=== PATIENT | male | born 1965 | race Caucasian/White ===

== ENCOUNTER 2016-06-23 13:14 | Emergency (ER) | payer OTHER ==
[~2016-06-23] VITALS: Ht 188 cm; Wt 81.7 kg
[2016-06-23 14:20] LABS: HEMATOCRIT 43.6 % (42.0-52.0); HEMOGLOBIN 15.2 gm/dL (14.0-18.0); MCH 32.4 pg (26.0-34.0); MCHC 34.8 % (28.0-37.0); MCV 92.9 fL (80.0-100.0); PLATELET COUNT 226 thou/uL (150-400); RBC 4.69 mil/uL (4.50-6.00); RDW 14.1 % (10.5-14.5)
[2016-06-23 14:27] LABS: CALCIUM 9.1 mg/dL (8.5-10.1); CREATININE 1.1 mg/dL (0.6-1.3); MANUAL DIFF YES; POTASSIUM 4.2 mmol/L (3.5-5.1)
[2016-06-23] MEDS ORDERED: VENTOLIN HFA 1818 GM INH (16:48)
[2016-06-23] MEDS ORDERED: BACTRIM DS TAB1 EACH PO (16:53)
[2016-06-23] MEDS ORDERED: PREDNISONE 20 M20 MG PO (16:53)
[2016-06-23 17:00] VITALS: BP 126/73
[2016-06-23 18:23] LABS: ABSOLUTE NEUTROPHILS 3.1 thou/uL (1.4-8.2); METAMYELOCYTES 1 %; TOTAL CELL COUNT 100
== END 2016-06-23 17:00 | disposition home or self-care (01) ==
LOC: ER 13:14
PROVIDERS: Physician Assistant
DX: J44.1 Chronic obstructive pulmonary disease with (acute) exacerbation (principal); J20.8 Acute bronchitis due to other specified organisms; B43.2 Subcutaneous pheomycotic abscess and cyst; F10.21 Alcohol dependence, in remission

== ENCOUNTER 2016-09-14 01:43 | Emergency (ER) | payer OTHER ==
[~2016-09-14] VITALS: Ht 188 cm; Wt 70.3 kg
[~2016-09-14 01:43] MED LIST: BACTRIM DS TAB1 EACH PO; PREDNISONE 20 M20 MG PO; VENTOLIN HFA 1818 GM INH
[2016-09-14 03:43] LABS: ABSOLUTE NEUTROPHILS 7.1 thou/uL (1.4-8.2); BASOPHILS 1.3 % (0.0-2.0); EOSINOPHILS 0.6 % (0.0-3.0); HEMATOCRIT 43.5 % (42.0-52.0); HEMOGLOBIN 15.2 gm/dL (14.0-18.0); LYMPHOCYTES 13.5 % (24.0-44.0); MCH 34.5 pg (26.0-34.0); MCV 98.6 fL (80.0-100.0); MONOCYTES 6.7 % (1.0-8.0); PLATELET COUNT 357 thou/uL (150-400); POLYS 77.9 % (36.0-66.0); RBC 4.42 mil/uL (4.50-6.00); RDW 16.6 % (10.5-14.5); WBC 9.1 thou/uL (4.0-11.0)
[2016-09-14 03:47] LABS: MANUAL DIFF NO
[2016-09-14 04:00] LABS: ALBUMIN 3.9 g/dL (3.4-5.0); CALCIUM 8.8 mg/dL (8.5-10.1); CREATININE 0.9 mg/dL (0.7-1.3); POTASSIUM 4.2 mmol/L (3.5-5.1); TOTAL BILIRUBIN 0.5 mg/dL (<0.1-1.0); TOTAL PROTEIN 7.9 g/dL (6.4-8.2)
[2016-09-14] MEDS ORDERED: NORCO 5-325 TA1 EACH PO (04:52)
[2016-09-14] MEDS ORDERED: PRILOSEC 20 MG20 MG PO (04:52)
[2016-09-14] MEDS ORDERED: ZOFRAN ODT8 MG PO (04:52)
[2016-09-14] MEDS ORDERED: AUGMENTIN 875-1 EACH PO (04:52)
[2016-09-14 06:03] VITALS: BP 126/77
[2016-09-15] MEDS ORDERED: PERCOCET 5-3251 EACH PO (19:51)
== END 2016-09-14 06:04 | disposition home or self-care (01) ==
LOC: ER 01:43
PROVIDERS: Emergency Medicine
DX: J32.9 Chronic sinusitis, unspecified (principal); J44.9 Chronic obstructive pulmonary disease, unspecified; F17.210 Nicotine dependence, cigarettes, uncomplicated; Z88.6 Allergy status to analgesic agent

== ENCOUNTER 2016-09-15 16:54 | Emergency (ER) | payer OTHER ==
[~2016-09-15] VITALS: Ht 188 cm; Wt 72.6 kg
[~2016-09-15 16:54] MED LIST changes: +AUGMENTIN 875-1 EACH PO; +NORCO 5-325 TA1 EACH PO; +PRILOSEC 20 MG20 MG PO; +ZOFRAN ODT8 MG PO
[2016-09-15 18:26] LABS: ABSOLUTE NEUTROPHILS 6.6 thou/uL (1.4-8.2); BASOPHILS 0.9 % (0.0-2.0); EOSINOPHILS 1.4 % (0.0-3.0); HEMATOCRIT 41.6 % (42.0-52.0); HEMOGLOBIN 14.6 gm/dL (14.0-18.0); LYMPHOCYTES 13.8 % (24.0-44.0); MCH 34.1 pg (26.0-34.0); MCHC 35.1 g/dL (28.0-37.0); MCV 97.2 fL (80.0-100.0); MONOCYTES 8.4 % (1.0-8.0); PLATELET COUNT 318 thou/uL (150-400); POLYS 75.5 % (36.0-66.0); RBC 4.28 mil/uL (4.50-6.00); WBC 8.7 thou/uL (4.0-11.0)
[2016-09-15 18:33] LABS: MANUAL DIFF NO
[2016-09-15 18:45] LABS: CALCIUM 9.1 mg/dL (8.5-10.1); CREATININE 0.9 mg/dL (0.7-1.3); POTASSIUM 3.9 mmol/L (3.5-5.1)
[2016-09-15] MEDS ORDERED: PERCOCET 5-3251 EACH PO (19:51)
[2016-09-15 20:21] VITALS: BP 147/101
== END 2016-09-15 20:43 | disposition home or self-care (01) ==
LOC: ER 16:54
PROVIDERS: Emergency Medicine
DX: K04.7 Periapical abscess without sinus (principal); J32.0 Chronic maxillary sinusitis; J44.9 Chronic obstructive pulmonary disease, unspecified; F17.210 Nicotine dependence, cigarettes, uncomplicated; Z88.6 Allergy status to analgesic agent